=== PATIENT | female | born 1945 ===

== ENCOUNTER 2024-10-17 13:00 | Outpatient (AMB) | payer MEDICARE, SELFPAY ==
--- NOTE | 2024-10-17 13:02 | A.OFFVIS_ITS ---
Intake Visit Reasons: f/u Allergies No Known Allergies Allergy (Verified 10/10/24 08:57) HPI Comments Details: 78 y/o woman with moderate to severe dementia, parkinsonism, and seizure disorder (slumping, shaking, grunting). She was at home mostly bedridden cared by her and could not come for appointment. This was done through video. [facility] Medical History (Updated 10/17/24 @ 13:05 by Isabell Aguila MD) Parkinsonism, secondary Alzheimer dementia Review of Systems Const Details: Could not be done with her Physical Exam Neuro Other: She is alert and awake looking around did not communicate. She was sitting in her bed. Assessment & Plan Assessment & Plan (1) Alzheimer dementia: Code(s): G30.9 - Alzheimer's disease, unspecified; F02.80 - Dementia in other diseases classified elsewhere, unspecified severity, without behavioral disturbance, psychotic disturbance, mood disturbance, and anxiety Category: Medical Qualifiers: Alzheimer's disease onset: late onset Dementia severity: severe Dementia behavioral or psychological symptom: with anxiety Qualified Code(s): G30.1 - Alzheimer's disease with late onset; F02.C4 - Dementia in other diseases classified elsewhere, severe, with anxiety Plan Impression: a: Alzheimer disease, severe, physically and mentally fully disable requiring 24/7 help b: Itching Rec: a: Sertaline 25mg qd b: Carbidopa/levotodp 25/100 tid c: Levetiracetam 500mg bid d: hydroxyzine 10mg a day as needed for itching Medications: New hydroxyzine HCl 10 mg PO BEDTIME PRN 90 tabs 0RF itching carbidopa-levodopa 25-100 mg 1 tab PO TID 270 tabs 1RF levetiracetam 500 mg PO BID 180 tabs 1RF sertraline 25 mg PO DAILY 90 tabs 1RF Coding Level of Care Code Est Pt Level 4 (10556) Diagnoses Severe late onset Alzheimer's dementia with anxiety G30.1; F02.C4 Alzheimer's disease onset: late onset Dementia severity: severe Dementia behavioral or psychological symptom: with anxiety
--- OUTSIDE RECORDS SUMMARY | 2024-10-17 13:20 | XMS_ITS | Clinical Summary ---
Author Organization [place] [address] [address] [facility] Building Address [address] [place], [place] [address] [address] Phone Care Team Providers Care Folding Machine Setter Name Role Phone Teddy Keita MD Primary Care Provider [phone] Allergies Active Allergy Reactions Criticality Noted Date Comments Pravastatin Pain 07/06/2012 Medications aspirin 81 mg EC tablet Take 81 mg by mouth daily. Active carbidopa-levodopa (SINEMET) 25-100 mg per tablet 4 Active levETIRAcetam (KEPPRA) 500 mg tablet 4 Active sertraline (ZOLOFT) 25 mg tablet 4 Active PNV no.95/ferrous fum/folic ac ( MULTIVITAMINS ORAL) 1 daily Active lovastatin (MEVACOR) 20 mg tablet TAKE 1 TABLET(20 MG) BY MOUTH AT BEDTIME 90 tablet 5 Active amLODIPine (NORVASC) 2.5 mg tablet TAKE 1 TABLET BY MOUTH DAILY 90 tablet 1 5 Active Active Problems Problem Noted Date Diagnosed Date Seizure ([facility] V24, [facility] V28) 06/14/2024 Parkinson's disease ([facility] V24, [facility] V28) 0 12/14/2023 Postural hypotension 10/02/2021 Overview (04/26/2024): Likely medication induced Vasovagal syncope 10/02/2021 New onset left bundle branch block (LBBB) 2021 Anxiety 08/29/2020 Dementia ([facility] V24, [facility] V28) 12/24/2017 Overview (04/26/2024): CT possibly suggestive of NPH - pt sees Dr Aguila, he feels she has Alzheimer's dementia Dry eye syndrome 03/07/2014 Pinguecula 03/07/2014 Overweight 10/12/2012 Nuclear sclerosis 10/13/2011 Polymyalgia rheumatica ([facility] V24) 06/15/2009 Overview (04/26/2024): Onset spring 2008- tapered off prednisone early 2010 Fibromyalgia 05/22/2009 Osteopenia 09/11/2008 Hyperlipidemia 06/26/2006 Immunizations Name Administration Dates Next Due Influenza trivalent, 0.5mL ( Fluad) 65yo and older 12/14/2023,12/10/2022,12/16/2018,11/16,11/26/2017,11/27/2015 Influenza trivalent, 0.5mL, preservative free (Fluarix; FluLaval; Fluzone) ages 6mo and older (Afluria) 3 years and older 12/28/2013,02/11/2012,11/28/2009,12/20,01/18/2008 [place]ongo SARS-CoV-2 COVID-19, mRNA, LNP-S, preservative free 03/01/2021,07/19/2020,06/28/2020 Pneumococcal conjugate 13 va lent (Prevnar 13, PCV13) 2mo and older 04/12/2015 Pneumococcal polysaccharide 23 valent (Pneumovax 23) 2yo and older 05/30/2011 Td Tetanus diptheria (Tdvax) 7yo and older 03/31/2019,08/28/1998 Tdap Tetanus diptheria acell ular pertussis (Boostrix; Adacel) 7yo and older 08/25/2008 Zoster Live 11/02/2012 Zoster recombinant (Shingrix ) 19yo and older 05/13/2019 Surgical History Surgery Date Site/Laterality Comments TUBAL LIGATION PROCEDURE: HISTORICAL TUBAL LIGATION ROTATOR CUFF REPAIR about 2004 PROCEDURE: HISTORICAL ROTATOR CUFF REPAIR; COMMENT: right BREAST BIOPSY 2010 Left PROCEDURE: BX BREAST; PERC NEEDLE CORE W/IMAG GUID; COMMENT: neg Medical History Medical History Date Comments Sprain of neck 01/03/2005 DX:Sprain of nec k Sprain of thoracic region 01/03/2005 DX:Spr ain of thoracic region Sprain of lumbosacral (joint ) (ligament) 01/03/2005 DX:Sprain of lumbosacral (dexter int) (ligament) Other and unspecified hyperlipidemia 06/26/2006 DX:Other and unspecified hyperlipidemia New onset left bundle branch block (LBBB) 08/05/2021 DX:New onset left bundle bra nch block (LBBB) Parkinson's disease ([facility] V24, [facility] V28) 12/14/2023 DX:Parkinson's disease ([facility]) Family History Medical History Relation Name Comments No Known Problems Aunt No Known Problems Brother Other cancer Father stomach No Known Problems Maternal Grandfather No Known Problems Maternal Grandmother Arthritis Mother Cataracts Mother No Known Problems Other No Known Problems Paternal Grandfather No Known Problems Paternal Grandmother Cataracts Sister 1 Arthritis Sister 2 No Known Problems Uncle Blindness Neg Hx Breast cancer Neg Hx Glaucoma Neg Hx Macular degeneration Neg Hx Strabismus Neg Hx Relation Name Status Comments Aunt Brother Father Maternal Grandfather Maternal Grandmother Mother Other Paternal Grandfather Paternal Grandmother Sister 1 Sister 2 Uncle Social History Tobacco Use Types Packs/Day Years Used Date Smoking Tobacco: Never Smokeless Tobacco: Never Alcohol Use Standard Drinks/Week Comments No 0 (1 standard drink = 0.6 oz pur e alcohol) Comments Unknown Sex and Gender Information Value Date Recorded Sex Assigned at Not on file Legal Sex Female 9:31 AM EST Gender Identity Not on file Sexual Orientation Not on file Obstetrics History Last Filed Vital Signs Vital Sign Reading Time Taken Comments Blood Pressure 138/86 12/14/2023 3:36 PM EDT Pulse 70 12/14/2023 3:36 PM EDT Temperature - - Respiratory Rate - - Oxygen Saturation - - Inhaled Oxygen Concentration - - Weight 63 kg (138 lb 14.4 oz) 12/14/2023 3:36 PM EDT Height 149.9 cm (4' 11 ) 12/14/2023 3:36 PM EDT Body Mass Index 28.05 12/14/2023 3:36 PM EDT Plan of Treatment Health Maintenance Due Date Last Done Comments Zoster Vaccines (3 of 3) 07/08/2019 05/13/2019, 10/15 RSV Immunization Adult Patients (1 - 1-dose 75+ series) 11/30/2019 Colorectal Cancer Screening: FIT-DNA (Cologuard) 02/10/2022 Falls Risk Assessment 02/10/2022 Medicare Annual Wellness Visit 02/10/2022 Social Influencers of Health Screening 02/10/2022 COVID-19 Vaccine ( season) 2023 03/01/2021, 07/19/2020, 06/28/2020 Hypertension/CHF/CAD Annual BMP Blood Test 12/24/2023 12/11/2022 Depression Screening 03/16/2024 Influenza Vaccine (#1) 2024 , 12/10/2022, 01/01/2022, Additional history exists Cholesterol Screening (Lipid Panel) 12/12/2027 12/11/2022 DTaP,Tdap,and Td Vaccines (4 - Td or Tdap) 03/31/2029 03/31/2019, 08/25/2008, 08/28/1998 Osteoporosis Screening (Bone Density Screening) 08/15/2032 08/15/2022, 04/11/2019, 12/09/2016 Pneumococcal Vaccine: 50+ Years Completed 04/12/2015, 05/30/2011 Hepatitis C Screening Completed 05/20/2016 HIB Vaccines Aged Out No longer eligi ble based on patient's age to complete this topic HPV Vaccines Aged Out No longer eligi ble based on patient's age to complete this topic Hepatitis A Vaccines Aged Out No long er eligible based on patient's age to complete this topic Hepatitis B Vaccines Aged Out No long er eligible based on patient's age to complete this topic IPV Vaccines Aged Out No longer eligi ble based on patient's age to complete this topic MMR Vaccines Aged Out No longer eligi ble based on patient's age to complete this topic Meningococcal ACWY Vaccine Aged Out N o longer eligible based on patient's age to complete this topic Meningococcal B Vaccine Aged Out No l onger eligible based on patient's age to complete this topic RSV Immunization Patients Under 20 months Aged Out No longer eligible based on patient's age to complete this topic Varicella Vaccines Aged Out No longer eligible based on patient's age to complete this topic Procedures Procedure Name Priority Date/Time Associated Diagnosis Comments ANNUAL BMP BLOOD TEST Routine 12/11/2022 LIPID PANEL Routine 12/11/2022 DXA BONE DENSITY STUDY 1+ SITS AXIAL SKEL Routine 08/15/2022 3:48 PM EDT Age-related osteoporosis without current pathological fracture HEPATITIS C SCREENING Routine 05/20/2016 from Last 3 Months or Most Recently Relevant to Health Maintenance Results * Annual BMP Blood Test (12/11/2022) Annual BMP Blood Test Abstracted Historical Provider HEALTH MAINTENANCE Final Result * (ABNORMAL) Lipid panel (12/11/2022) LDL/HDL Ratio 4 0 - 4 Triglycerides 150 0 - 150 mg/dL Cholesterol 193 0 - 200 mg/dL HDL 47 >=40 mg/dL LDL Cholesterol 116(A) 0 - 100 mg/dL Blood Venous blood specimen / Unknown Historical Provider LAB BLOOD ORDERABLES Candi l Result * DXA BONE DENSITY STUDY 1+ SITS AXIAL SKEL (08/15/2022 3:48 PM EDT) Anatomical Region Laterality Modality Bone Densitometr y 06/09/2022 2:55 PM EDT Narrative 08/18/2022 6:15 PM EDT BONE DENSITY SCAN (DEXA): FINDINGS: Lumbar Spine L2-L4, L1 excluded due to endplate sclerotic change T-score is -0.7. (SD relative to 20-29 y/o adult) Z-score is 1.9. (SD relative to age matched peers) This is considered osteopenia by WHO criteria. Left Hip T-score is -1.8. Z-score is 0.4. This is considered osteopenia by WHO criteria. Comparison exam(s): 04/11/2019. 13.6% increase in lumbar spine bone mineral density which is statistically significant at the 95% confidence level. No statistically significant change in left hip bone mineral density. IMPRESSION: IMPRESSION: Osteopenia by WHO criteria. This patient has a 13% risk of major osteoporotic fracture and a 3.2% risk of hip fracture over the next 10 years. (World Health Organization Fracture Risk Assessment) [facility] Department of Internal Medicine recommends using National Osteoporosis Foundation (NOF) guidelines in treatment decisions related to osteoporosis. NOF guidelines suggest considering treatment for postmenopausal women and men aged 50 or older presenting with the following: History of hip or vertebral fracture. T-score = -2.5 (DXA) at the femoral neck, total hip, or spine, after appropriate evaluation to exclude secondary causes. Low bone mass (T-score between -1.0 and -2.5 at the femoral neck or spine) AND a 10-year probability of a hip fracture = 3% OR a 10-year probability of a major osteoporosis-related fracture = 20% based on the [place]-adapted WHO algorithm Please note that all treatment decisions require clinical judgment and consideration of individual patient factors, including patient preferences, co-morbidities, previous drug use, risk factors not captured in the FRAX model (e.g., frailty, falls, vitamin D deficiency, increased bone turnover, interval significant decline in bone density) and possible under- or over-estimation of fracture risk by FRAX. Optional alternative screening schedule based on quentin Herbert., [facility] April 03, 2011 for patients with osteopenia (based on hip BMD T-score) is as follows: * advanced osteopenia (T scores -2.00 to -2.49), BMD testing every year * moderate osteopenia (T scores -1.50 to -1.99), BMD testing every 5 years mild osteopenia or normal BMD (T scores -1.50 and higher), BMD testing every 15 years Procedure Note Rowan Berry MD - 04/20/2023 BONE DENSITY SCAN (DEXA): FINDINGS: Lumbar Spine L2-L4, L1 excluded due to endplate sclerotic change T-score is -0.7. (SD relative to 20-29 y/o adult) Z-score is 1.9. (SD relative to age matched peers) This is considered osteopenia by WHO criteria. Left Hip T-score is -1.8. Z-score is 0.4. This is considered osteopenia by WHO criteria. Comparison exam(s): 04/11/2019. 13.6% increase in lumbar spine bonemineral density which is statistically significant at the 95% confidence level. No statisticallysignificant change in left hip bone mineral density. IMPRESSION: IMPRESSION: Osteopenia by WHO criteria. This patient has a 13% risk of majorosteoporotic fracture and a 3.2% risk of hip fracture over the next 10 years. (World HealthOrganization Fracture Risk Assessment) [facility] Department of Internal Medicine recommendsusing National Osteoporosis Foundation (NOF) guidelines in treatment decisions related toosteoporosis. NOF guidelines suggest considering treatment for postmenopausal women and menaged 50 or older presenting with the following: History of hip or vertebral fracture. T-score = -2.5 (DXA) at the femoral neck, total hip, or spine, afterappropriate evaluation to exclude secondary causes. Low bone mass (T-score between -1.0 and -2.5 at the femoral neck or spine)AND a 10-year probability of a hip fracture = 3% OR a 10-year probability of a majorosteoporosis-related fracture = 20% based on the [place]-adapted WHO algorithm Please note that all treatment decisions require clinical judgment andconsideration of individual patient factors, including patient preferences, co- morbidities,previous drug use, risk factors not captured in the FRAX model (e.g., frailty, falls, vitaminD deficiency, increased bone turnover, interval significant decline in bone density) andpossible under- or over-estimation of fracture risk by FRAX. Optional alternative screening schedule based on quentin Herbert., NEJMJanuary 2011 for patients with osteopenia (based on hip BMD T-score) is as follows: * advanced osteopenia (T scores -2.00 to -2.49), BMD testing every year * moderate osteopenia (T scores -1.50 to -1.99), BMD testing every 5years mild osteopenia or normal BMD (T scores -1.50 and higher), BMD testingevery 15 years Teddy Keita MD IM DXA PROCEDURES Final Result * Hepatitis C Screening (05/20/2016) [facility] Hepatitis C Screening Abstracted Historical Provider HEALTH MAINTENANCE Final Result from Last 3 Months or Most Recently Relevant to Health Maintenance Insurance [employer] MED[employer]ARE Care Teams Folding Machine Setter Relationship Specialty Start Date End Date Teddy Keita MD [address] [place] [id number] PCP - General Internal Medicine 05/23/20
== END 2024-10-17 16:38 | disposition home or self-care (01) ==
LOC: HO.HSM 13:00
PROVIDERS: PCP Internal Medicine; Visit Provider Psychiatry & Neurology Neurology
DX: G30.1 Alzheimer's disease with late onset (principal); F02.C4 Dementia in other diseases classified elsewhere, severe, with anxiety
CPT/HCPCS: 99214

== ENCOUNTER → 2024-10-17 13:00 | Outpatient (BNVA) | payer MEDICARE, SELFPAY | PROVIDERS: PCP Internal Medicine; Visit Provider Psychiatry & Neurology Neurology | DX: G30.1 Alzheimer's disease with late onset (principal); F02.C4 Dementia in other diseases classified elsewhere, severe, with anxiety; Z79.899 Other long term (current) drug therapy | CPT/HCPCS: 99212 ==